=== PATIENT | male | born 1970 | race Caucasian/White ===

== ENCOUNTER 2024-09-20 12:17 | Emergency (ER) | payer SELFPAY ==
--- OUTSIDE RECORDS SUMMARY | 2024-09-20 12:20 | XMS REPORT | Continuity of Care Document ---
Author Name Unknown Address [address] [facility] [address] [place] [address] Organization [facility] [place] Address [address] [facility] [address] [place] [address] Care Team Providers Care Clinical Outcomes Manager Name Role Phone Willian Barreto Attending Clinician Unavailable Dayron Riojas Attending Clinician Unavail able Payers Payer Name Policy Type Policy Number Effective Date Expirati on Date Source Social History Social Habit Start Date Stop Date Quantity Comments Source Sex Assigned At 1970 00:00:00 1970 00:00:00 Male [facility] Smoking Status Start Date Stop Date Source Unknown if ever smoked [facility] Encounters Start Date/Time End Date/Time Encounter Type Admission Type Attending Clinicians Care Facility Care Department Encounter ID Source 2021-05-21 10:49:00 2021-05-21 11:24:00 Emergency ER BarretoWillian STJB STLSJB [id number] [facility] 2021-05-21 10:49:00 2021-05-21 11:24:00 Outpatient [facility]BS [facility] [id number] [facility] 2021-05-21 10:49:00 2021-05-21 11:24:00 Departed Emergency [id number] [facility] Ctr-EMERGEN CY SERVICES/BS [facility] [id number] [facility] 2021-05-19 07:58:00 2021-05-19 09:37:00 Outpatient [facility] [id number] [facility] 2021-05-19 07:58:00 2021-05-19 09:37:00 Departed Emergency [id number] [facility] Ctr-EMERGEN CY SERVICES/BS [facility] [id number] [facility] 2021-05-19 07:58:00 2021-05-19 09:37:00 Emergency ER Dayron Riojas [facility] [id number] [facility]
--- NOTE | 2024-09-20 12:47 | EDPHYS ---
Physician Documentation [facility] Name: Amor Grey Age: 54 yrs Sex: Male : 1970 Arrival Date: 09/20/2024 Time: 12:17 Bed 19 Private MD: ED Physician Jorden Gonzalez HPI: 09/20 12:44 This 54 yrs old Male presents to ER via Ambulatory with complaints of Skin Problem - rn Boil on right leg. 12:44 the patient presents with a swollen area of the Right groin. Onset: The rn symptoms/episode began/occurred 3 week(s) ago. Severity of symptoms: At their worst the symptoms were moderate, in the emergency department the symptoms have improved. Patient reports swollen area to right groin, present for a few weeks, recently popped and drained and decreased in size but still with foul-smelling mild tenderness. No fever or chills.. Historical: - Allergies: 12:24 No Known Allergies; ll1 - PMHx: 12:36 Myocardial infarction; Hypertensive disorder; ll1 - PSHx: 12:36 heart surgery; ll1 - Immunization history:: Adult Immunizations up to date. - Infectious Disease History:: Denies. - Social history:: Smoking status: Patient reports the use of cigarette tobacco products, smokes one pack cigarettes per day. - Family history:: not pertinent. - Hospitalizations: : No recent hospitalization is reported. ROS: 12:44 Constitutional: Negative for fever, chills, and weight loss, Skin: Positive for tender rn and draining area right groin Exam: 12:44 Constitutional: This is a well developed, well nourished patient who is awake, alert, rn and in no acute distress. Skin: Right groin with area of erythema and foul smell, open wound with minimal drainage. No fluctuance or evidence of infection at this time. No involvement of scrotum or penis. Vital Signs: 12:34 BP 161 / 65; Pulse 86; Resp 17; Temp 98; Pulse Ox 98% on R/A; Weight 81.65 kg; Height 6 ll1 ft. 0 in. ; Pain 5/10; 12:44 BP 154 / 78; Pulse 70; Resp 18; Temp 98; Pulse Ox 100% on R/A; kj2 12:34 Body Mass Index 24.41 (81.65 kg, 182.88 cm) ll1 12:34 Pain Scale: Adult ll1 MDM: 12:25 Medical Screening Exam initiated rn 12:44 Differential diagnosis: cellulitis. Data reviewed: vital signs, nurses notes, and as a rn result, I will discharge patient. Counseling: I had a detailed discussion with the patient and/or guardian regarding the historical points, exam findings, and any diagnostic results supporting the discharge/admit diagnosis, the need for outpatient follow up, to return to the emergency department if symptoms worsen or persist or if there are any questions or concerns that arise at home. Special discussion: I discussed with the patient/guardian in detail that at this point there is no indication for admission to the hospital. It is understood, however, that if the symptoms persist or worsen the patient needs to return immediately for re-evaluation. 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
--- NOTE | 2024-09-20 12:47 | ER ---
Nurse's Notes [facility] Name: Amor Grey Age: 54 yrs Sex: Male : 1970 Arrival Date: 09/20/2024 Time: 12:17 Bed 19 Private MD: Diagnosis: Cellulitis of groin Presentation: 09/20 12:34 Chief complaint: Patient states: Abscess to R groin area for 1 month, started draining ll1 a few days ago. No known fever. Coronavirus screen: Client denies travel out of the [place] in the last 14 days. At this time, the client does not indicate any symptoms associated with coronavirus-19. Ebola Screen: Patient denies travel to an Ebola-affected area in the 21 days before illness onset. Initial Sepsis Screen: Does the patient meet any 2 criteria? No. Patient's initial sepsis screen is negative. Does the patient have a suspected source of infection? No. Patient's initial sepsis screen is negative. Risk Assessment: Do you want to hurt yourself or someone else? Patient reports no desire to harm self or others. Onset of symptoms was August 20, 2024. 12:34 Method Of Arrival: Ambulatory ll1 12:34 Acuity: BAIRON 4 ll1 Triage Assessment: 12:36 General: Appears uncomfortable, Behavior is calm, cooperative, appropriate for age. ll1 Pain: Complains of pain in R groin Quality of pain is described as aching. Derm: Abscess located on R groin is dime sized, has purulent drainage, is hot to touch, is red, is raised. Historical: - Allergies: 12:24 No Known Allergies; ll1 - PMHx: 12:36 Myocardial infarction; Hypertensive disorder; ll1 - PSHx: 12:36 heart surgery; ll1 - Immunization history:: Adult Immunizations up to date. - Infectious Disease History:: Denies. - Social history:: Smoking status: Patient reports the use of cigarette tobacco products, smokes one pack cigarettes per day. - Family history:: not pertinent. - Hospitalizations: : No recent hospitalization is reported. Screenin:42 [facility] ED Fall Risk Assessment (Adult) History of falling in the last 3 months, kj2 including since admission No falls in past 3 months (0 pts) Confusion or Disorientation No (0 pts) Intoxicated or Sedated No (0 pts) Impaired Gait No (0 pts) Mobility Assist Device Used No (0 pt) Altered Elimination No (0 pt) Score/Fall Risk Level 0 - 2 = Low Risk Maintained a safe environment. Abuse screen: Denies threats or abuse. Denies injuries from another. Nutritional screening: No deficits noted. Tuberculosis screening: No symptoms or risk factors identified. Assessment: 12:40 General: Appears in no apparent distress. Behavior is calm, cooperative. Pain: Denies kj2 pain. Neuro: Level of Consciousness is awake, alert, obeys commands, Oriented to person, place, time, situation. Cardiovascular: Patient's skin is warm and dry. Respiratory: Airway is patent Respiratory effort is unlabored. GI: No signs and/or symptoms were reported involving the gastrointestinal system. : No signs and/or symptoms were reported regarding the genitourinary system. 12:50 Reassessment: Patient appears in no apparent distress at this time. Patient and/or kj2 family updated on plan of care and expected duration. Pain level reassessed. Patient is alert, oriented x 3, equal unlabored respirations, skin warm/dry/pink. Vital Signs: 12:34 BP 161 / 65; Pulse 86; Resp 17; Temp 98; Pulse Ox 98% on R/A; Weight 81.65 kg; Height 6 ll1 ft. 0 in. ; Pain 5/10; 12:44 BP 154 / 78; Pulse 70; Resp 18; Temp 98; Pulse Ox 100% on R/A; kj2 12:34 Body Mass Index 24.41 (81.65 kg, 182.88 cm) ll1 12:34 Pain Scale: Adult ll1 ED Course: 12:22 Patient arrived in ED. im 12:24 Arm band placed on Patient placed in an exam room, on a stretcher. ll1 12:25 Jorden Gonzalez MD is Attending Physician. rn 12:35 Triage completed. ll1 12:38 Jacki Schwartz, HIRAL is Primary Nurse. kj2 12:42 Patient has correct armband on for positive identification. Provided Education on: call kj2 light. 12:43 No provider procedures requiring assistance completed. kj2 Administered Medications: No medications were administered Medication: 12:43 VIS not applicable for this client. kj2 Outcome: 12:46 Discharge ordered by . rn 12:49 Discharged to home ambulatory, kj2 12:49 Condition: stable 12:49 Discharge instructions given to patient, Instructed on discharge instructions, follow up and referral plans. Demonstrated understanding of instructions, follow-up care, 12:50 Patient left the ED. ll1 Signatures: Jorden Gonzalez MD MD rn Lewis, Lynsay RN RN ll1 Amanda Torres Krystal RN RN kj2
[2024-09-20 12:56] VITALS: TEMP 98
[2024-09-20 12:57] VITALS: BP 154/78; O2SAT 100
== END 2024-09-20 12:50 | disposition home or self-care (01) ==
LOC: ER 12:17
DX: L03.314 Cellulitis of groin (principal)